=== PATIENT | female | born 1975 | race Caucasian/White ===

== ENCOUNTER 2019-03-11 20:31 | Emergency (ER) | payer BC ==
[~2019-03-11] VITALS: Ht 152.4 cm; Wt 75.2 kg
[2019-03-11] MEDS ORDERED: LORazepam 2 MG/ML VIAL (J2060) IV STA (21:08)
[2019-03-11] MEDS ORDERED: ONDANSETRON 4MG/2ML VIAL (J2405) IV ONE (21:15)
[2019-03-11] MEDS ORDERED: ASPIRIN 81 MG CHEW TABLET PO ONE (21:15)
[2019-03-11] MEDS ORDERED: NS 1,000 ML IV ONE (21:15)
[2019-03-11 21:22] LABS: BASO % 0.3 % (0.0-1.0); EOS % 0.1 % (0.0-3.0); HEMATOCRIT 42.1 % (36.0-47.0); HEMOGLOBIN 14.3 g/dl (12.0-15.5); LYMPH % 21.9 % (24.0-44.0); MEAN CORPUSCULAR HEMOGLOBIN 30.8 pg (27.0-33.0); MEAN CORPUSCULAR VOLUME 90.5 fl (80.0-96.0); MONO # 0.8 10^3/uL (0.0-0.8); MONO % 9.2 % (0.0-5.0); NEUTROPHILS # 6.1 10^3/uL (1.8-7.7); NEUTROPHILS % 68.3 % (36.0-66.0); PLATELET COUNT, AUTOMATED 273 10^3/uL (150-450); RED BLOOD COUNT 4.65 10^6/uL (4.00-5.40); WHITE BLOOD COUNT 8.9 10^3/uL (4.0-10.0)
[2019-03-11 21:28] LABS: HCG, SERUM QUALITATIVE NEGATIVE (NEGATIVE)
[2019-03-11 21:38] LABS: ALBUMIN 4.1 GM/DL (3.2-5.2); ALT/SGPT 19 U/L (12-78); BILIRUBIN,DIRECT 0.2 MG/DL (0.0-0.2); BILIRUBIN,TOTAL 0.8 MG/DL (0.2-1.0); BLOOD UREA NITROGEN 6 MG/DL (7-18); CALCIUM LEVEL 8.8 MG/DL (8.5-10.1); CARBON DIOXIDE LEVEL 23 MEQ/L (21-32); CHLORIDE LEVEL 108 MEQ/L (98-107); CK-MB VALUE MASS < 1.0 NG/ML (<3.6); CPK CREATINE PHOSPHOKINASE 51 U/L (26-192); CREATININE FOR GFR 0.84 MG/DL (0.55-1.30); GLOMERULAR FILTRATION RATE > 60.0 (>58); GLUCOSE, FASTING 110 MG/DL (70-100); LIPASE 173 U/L (73-393); MB/CK RELATIVE INDEX 1.96 (< OR =4); POTASSIUM SERUM 3.4 MEQ/L (3.5-5.1); SODIUM LEVEL 140 MEQ/L (136-145); TOTAL PROTEIN 7.4 GM/DL (6.4-8.2); TROPONIN I < 0.02 NG/ML (< 0.10)
[2019-03-11 23:00] VITALS: BP 112/60
--- NOTE | 2019-03-12 09:47 | REP ---
Chest pain. PRIORS: None. The technique utilized in obtaining the radiograph has magnified the cardiac silhouette and accentuated the interstitial markings. FINDINGS: The superior mediastinal structures are midline. The cardiac silhouette is unremarkable in size, shape, and position. The diaphragmatic surfaces of the lungs are regular, and the costophrenic angles are clear. The pulmonary may are clear. The imaged osseous structures are intact. IMPRESSION: There is no acute cardiopulmonary disease. Electronically Signed by Kishore Akins DO 03/12/2019 01:46 P
--- NOTE | 2019-03-12 20:53 | ECGEPIP ---
Stationary ECG Study [facility] - ED Test Date: 2019-03-11 Pat Name: DAMARI SAMPSON Department: Room: - Gender: F [employer]: : [id number] Requested By: PATRICK Farias Order Number: [id number] Reading MD: Michelle Raza Measurements Intervals [place] Rate: 126 P: 58 HI: 176 QRS: 58 QRSD: 87 T: 55 QT: 401 QTc: 581 Interpretive Statements SINUS TACHYCARDIA NONSPECIFIC ST & T-WAVE ABNORMALITY ABNORMAL RHYTHM ECG NO PRIOR FOR COMPARISON Electronically Signed On 03-12-2019 20:53:29 EDT by Michelle Raza
== END 2019-03-11 22:59 | disposition home or self-care (01) ==
LOC: M ED 20:31
DX: R07.89 Other chest pain (principal); F41.9 Anxiety disorder, unspecified; R00.0 Tachycardia, unspecified; F10.99 Alcohol use, unspecified with unspecified alcohol-induced disorder
CPT/HCPCS: 71045; 80048; 80076; 82550; 82553; 83690; 84484; 84703; 85025; 85379; 93005; 93041; 94760; 96361; 96374; 96375; 99285; J2060; J2405